=== PATIENT | female | born 1955 | race Caucasian/White ===

== ENCOUNTER 2018-04-18 12:20 | Inpatient (IN) | payer OTHER ==
[~2018-04-18] VITALS: Ht 170.2 cm; Wt 44.9 kg
[2018-04-18 13:13] LABS: BASOPHILS % (AUTO) 0.2 % (0.0-5.0); EOSINOPHILS % (AUTO) 0.4 % (0.0-8.0); HEMATOCRIT 44.2 % (36-48); LYMPHOCYTES % (AUTO) 5.1 % (21.0-51.0); MEAN CORPUSCULAR HEMOGLOBIN 27.4 pg (27.0-33.0); MEAN CORPUSCULAR HGB CONC 31.9 g/dL (32.0-36.0); MEAN CORPUSCULAR VOLUME 85.9 fL (79-99); MONOCYTES % (AUTO) 5.3 % (3.0-13.0); PLATELET COUNT (AUTO) 376 K/uL (130-400); RED BLOOD CELL COUNT(AUTO) 5.14 MIL/uL (4.00-5.50); RED CELL DISTRIBUTION WIDTH 15.1 % (11.0-15.5); WHITE BLOOD COUNT (AUTO) 9.9 K/uL (4.8-10.8)
[2018-04-18 13:23] LABS: CREATININE 0.4 mg/dL (0.5-1.5); POTASSIUM 3.9 mmol/L (3.5-5.1)
[2018-04-18 13:28] LABS: ALBUMIN 2.4 g/dL (3.5-5.0); BILIRUBIN,TOTAL 0.5 mg/dL (0.2-1.0); MAGNESIUM 2.2 mg/dL (1.80-2.40); TOTAL PROTEIN, SERUM 6.4 g/dL (6.0-8.3)
[2018-04-18] MEDS ORDERED: SODIUM CHLORIDE 0.9% 1000ML 1,000 ML IV ONE ×2 (13:38→17:14)
[2018-04-18] MEDS ORDERED: CEFTRIAXONE SODIUM 1 GM ONE (14:34)
[2018-04-18] MEDS ORDERED: AZITHROMYCIN 500MG+NS 250ML 250 ML IV ONE (14:36)
[2018-04-18] MEDS ORDERED: IOHEXOL-350 50ML VIAL IV ONE (15:06)
[2018-04-18] MEDS ORDERED: ACETAMINOPHEN 325 MG TAB PO PRN (17:15)
[2018-04-18] MEDS ORDERED: MORPHINE SULFATE 2 MG/ML 1ML SYG IV PRN ×2 (17:15→21:15)
[2018-04-18] MEDS ORDERED: ONDANSETRON HCL 4 MG/2 ML VIAL IV PRN (17:15)
[2018-04-18 18:52] VITALS: BP 92/59
[2018-04-18] MEDS ORDERED: IPRATROPIUM/ALBUTEROL SULFATE 3 ML SOLUTION IH ONE (19:44)
[2018-04-18] MEDS: SODIUM CHLORIDE 0.9% 1000ML 1,000 ML IV SCH (19:45)
[2018-04-18] MEDS ORDERED: FUROSEMIDE 10 MG/ML 4ML VIAL IVP SCH (21:00)
[2018-04-18 23:00] VITALS: BP 106/61
[2018-04-18] MEDS: DOXYCYCLINE 100MG+NS 250ML 250 ML IV SCH (23:02)
[2018-04-18] MEDS: FAMOTIDINE/PF 20 MG/2 ML VIAL IV SCH (23:02)
[2018-04-18] MEDS: HEPARIN SODIUM 5000UNIT/ML 1ML VIAL SQ SCH (23:04)
[2018-04-18] MEDS: ZOSYN 3.375GM+NS 50ML 50 ML IV SCH (23:06)
[2018-04-18] MEDS ORDERED: SODIUM CHLORIDE 0.9% 50 ML IV ONE (23:12)
[2018-04-18] MEDS: IPRATROPIUM/ALBUTEROL SULFATE 3 ML SOLUTION IH SCH (23:23)
[2018-04-19 03:53] VITALS: BP 95/52
[2018-04-19] MEDS ORDERED: GUAIFENESIN-DM 200/20 MG 10 ML PO PRN (04:45)
[2018-04-19] MEDS ORDERED: GUAIFENESIN-DM 200/20 MG 10 ML ONE (05:30)
[2018-04-19] MEDS: IPRATROPIUM/ALBUTEROL SULFATE 3 ML SOLUTION IH SCH ×4 (05:51→23:12)
[2018-04-19 05:54] LABS: HEMATOCRIT 38.8 % (36-48); MEAN CORPUSCULAR HEMOGLOBIN 28.5 pg (27.0-33.0); MEAN CORPUSCULAR HGB CONC 32.9 g/dL (32.0-36.0); MEAN CORPUSCULAR VOLUME 86.6 fL (79-99); PLATELET COUNT (AUTO) 364 K/uL (130-400); RED BLOOD CELL COUNT(AUTO) 4.48 MIL/uL (4.00-5.50); RED CELL DISTRIBUTION WIDTH 15.3 % (11.0-15.5); WHITE BLOOD COUNT (AUTO) 7.1 K/uL (4.8-10.8)
[2018-04-19 06:06] LABS: INR 0.89 (0.85-1.15); PARTIAL THROMBOPLASTIN TIME 27.6 SEC (26.3-35.5); PROTHROMBIN TIME 9.4 SEC (9.6-11.6)
[2018-04-19 06:16] LABS: ALBUMIN 2.1 g/dL (3.5-5.0); BILIRUBIN,TOTAL 0.5 mg/dL (0.2-1.0); CREATININE 0.3 mg/dL (0.5-1.5); MAGNESIUM 1.9 mg/dL (1.80-2.40); PHOSPHORUS 2.3 mg/dL (2.5-4.9); POTASSIUM 3.1 mmol/L (3.5-5.1); THYROID STIMULATING HORMONE 3.16 uIU/mL (0.36-3.74); TOTAL PROTEIN, SERUM 5.6 g/dL (6.0-8.3)
[2018-04-19] MEDS: ZOSYN 3.375GM+NS 50ML 50 ML IV SCH ×3 (06:43→23:14)
[2018-04-19 07:00] VITALS: BP 94/56
[2018-04-19] MEDS ORDERED: POTASSIUM CHLORIDE 10% ELIXIR 20 MEQ/15 ML UDCUP PO PRN (08:00)
[2018-04-19] MEDS ORDERED: POTASSIUM CHLORIDE 20 MEQ ERTAB PO PRN (08:00)
[2018-04-19] MEDS ORDERED: LIDOCAINE HCL MPF 1% 5ML VIAL ONE (08:37)
[2018-04-19] MEDS: HEPARIN SODIUM 5000UNIT/ML 1ML VIAL SQ SCH ×2 (09:00→22:44)
[2018-04-19] MEDS: DOXYCYCLINE 100MG+NS 250ML 250 ML IV SCH ×2 (10:25→22:45)
[2018-04-19] MEDS: FAMOTIDINE/PF 20 MG/2 ML VIAL IV SCH ×2 (10:25→22:45)
[2018-04-19 11:13] LABS: APPEARANCE BODY FLUID CLEAR (CLEAR); COLOR,BODY FLUID YELLOW (LT YELLOW); SPECIMENTYPE,BODY FLUID PLEURAL; TOTAL VOLUME,BODY FLUID 800 mL
[2018-04-19 11:14] LABS: BODY FLUID RBC 2350 /cu. mm.; BODY FLUID WBC 457 /cu. mm.
[2018-04-19 11:26] LABS: BF LYMPHOCYTE 32 %; BF MESOTHELIAL 6 %; BF MONOCYTE 4 %
[2018-04-19 13:35] VITALS: BP 93/51
[2018-04-19] MEDS: SODIUM CHLORIDE 0.9% 1000ML 1,000 ML IV SCH ×2 (15:45→19:09)
[2018-04-19 16:00] VITALS: BP 93/66
[2018-04-19 19:00] VITALS: BP 96/64
[2018-04-19] MEDS: LIDOCAINE HCL-MPF 1% 2ML VIAL IVP PRN (19:09)
[2018-04-19] MEDS: POTASSIUM CHLORIDE 20MEQ/100ML 100 ML IV PRN (19:09)
[2018-04-19] MEDS ORDERED: HALOPERIDOL LACTATE 5 MG/ML VIAL IM PRN (20:00)
[2018-04-19] MEDS ORDERED: HALOPERIDOL LACTATE 5 MG/ML VIAL ONE (21:03)
[2018-04-19 23:00] VITALS: BP 94/54
[2018-04-20] MEDS ORDERED: SODIUM CHLORIDE 3% FOR INHALATION 4 ML/AMP VIAL.NEB IH ONE ×3 (00:11→11:04)
[2018-04-20] MEDS: POTASSIUM CHLORIDE 20MEQ/100ML 100 ML IV PRN ×2 (02:29→11:30)
[2018-04-20] MEDS: MAGNESIUM 2GM PREMIX 50ML 50 ML IV SCH (02:30)
[2018-04-20] MEDS: LIDOCAINE HCL-MPF 1% 2ML VIAL IVP PRN ×2 (02:30→11:30)
[2018-04-20 03:30] VITALS: BP 92/60
[2018-04-20] MEDS ORDERED: SODIUM CHLORIDE 0.9% 50 ML IV ONE (04:57)
[2018-04-20 05:22] LABS: HEMATOCRIT 38.4 % (36-48); MEAN CORPUSCULAR HEMOGLOBIN 27.5 pg (27.0-33.0); MEAN CORPUSCULAR HGB CONC 31.8 g/dL (32.0-36.0); MEAN CORPUSCULAR VOLUME 86.4 fL (79-99); PLATELET COUNT (AUTO) 339 K/uL (130-400); RED BLOOD CELL COUNT(AUTO) 4.44 MIL/uL (4.00-5.50)
[2018-04-20 05:32] LABS: LYMPHOCYTES % (MANUAL) 7 % (22-44); MONOCYTES % (MANUAL) 1 % (2-9); SEGMENTED NEUTROPHILS % 92 % (40-70)
[2018-04-20 05:33] LABS: MAN.DIFF COMMENT-IMPRESSION MANUAL DIFFERENTIAL; PLATELET MORPHOLOGY COMMENT ADEQUATE
[2018-04-20 05:45] LABS: BILIRUBIN,TOTAL 0.5 mg/dL (0.2-1.0); CREATININE 0.4 mg/dL (0.5-1.5); MAGNESIUM 2.6 mg/dL (1.80-2.40); POTASSIUM 3.2 mmol/L (3.5-5.1); TOTAL PROTEIN, SERUM 5.2 g/dL (6.0-8.3)
[2018-04-20] MEDS: IPRATROPIUM/ALBUTEROL SULFATE 3 ML SOLUTION IH SCH ×4 (05:52→23:34)
[2018-04-20] MEDS: ZOSYN 3.375GM+NS 50ML 50 ML IV SCH ×3 (06:41→22:42)
[2018-04-20 07:00] VITALS: BP 90/54
[2018-04-20] MEDS: FAMOTIDINE/PF 20 MG/2 ML VIAL IV SCH ×2 (10:37→22:42)
[2018-04-20] MEDS: DOXYCYCLINE 100MG+NS 250ML 250 ML IV SCH ×2 (10:37→22:41)
[2018-04-20] MEDS: HEPARIN SODIUM 5000UNIT/ML 1ML VIAL SQ SCH ×2 (10:39→22:47)
[2018-04-20] MEDS: DEXTROSE 5%-LACTATED RINGERS 1,000 ML IV SCH (10:58)
[2018-04-20 11:00] VITALS: BP 106/60
[2018-04-20 15:00] VITALS: BP 100/62
[2018-04-20 20:00] VITALS: BP 111/71
[2018-04-20] MEDS: DRONABINOL 2.5 MG CAP PO SCH (22:41)
[2018-04-21] VITALS (16 sets, daily range): BP systolic 83–145; BP diastolic 51–93
[2018-04-21] MEDS ORDERED: IPRATROPIUM/ALBUTEROL SULFATE 3 ML SOLUTION IH PRN
[2018-04-21 00:21] LABS: ABG BASE EXCESS -2.7 mmol/L (-2.0-3.0); ABG HCO3 25.4 mmol/L (21.0-28.0); ABG OXYGEN SATURATION 95.6 % (95.0-99.0); ABG PCO2 58 mmHg (32-45)
[2018-04-21] MEDS: IPRATROPIUM/ALBUTEROL SULFATE 3 ML SOLUTION IH SCH ×7 (01:50→23:04)
[2018-04-21] MEDS: DEXTROSE 5%-LACTATED RINGERS 1,000 ML IV SCH ×2 (03:41→13:25)
[2018-04-21] MEDS: ZOSYN 3.375GM+NS 50ML 50 ML IV SCH ×2 (06:43→16:31)
[2018-04-21] MEDS ORDERED: NOREPINEPHRINE 4MG/NS 250ML 250 ML IV SCH (08:15)
[2018-04-21] MEDS: DRONABINOL 2.5 MG CAP PO SCH ×2 (08:28→21:00)
[2018-04-21] MEDS: FOLIC ACID/VITAMIN B COMP W-C 1 MG CAPSULE PO SCH (08:28)
[2018-04-21] MEDS: METHYLPREDNISOLONE SOD SUCC 40MG/ML 1ML IVP SCH ×2 (08:44→16:31)
[2018-04-21] MEDS: DOXYCYCLINE 100MG+NS 250ML 250 ML IV SCH ×2 (08:44→21:41)
[2018-04-21] MEDS: FAMOTIDINE/PF 20 MG/2 ML VIAL IV SCH ×2 (08:44→21:41)
[2018-04-21] MEDS: THIAMINE HCL 100 MG/ML 2ML VIAL IVP SCH (08:44)
[2018-04-21 08:46] LABS: ABG BASE EXCESS 3.6 mmol/L (-2.0-3.0); ABG HCO3 27.9 mmol/L (21.0-28.0); ABG OXYGEN SATURATION 98.1 % (95.0-99.0); ABG PCO2 41 mmHg (32-45)
[2018-04-21] MEDS: HEPARIN SODIUM 5000UNIT/ML 1ML VIAL SQ SCH ×2 (08:59→21:45)
[2018-04-21 09:16] LABS: BASOPHILS % (AUTO) 0.1 % (0.0-5.0); EOSINOPHILS % (AUTO) 0.2 % (0.0-8.0); HEMATOCRIT 37.5 % (36-48); LYMPHOCYTES % (AUTO) 6.7 % (21.0-51.0); MEAN CORPUSCULAR HEMOGLOBIN 28.5 pg (27.0-33.0); MEAN CORPUSCULAR VOLUME 86.2 fL (79-99); MONOCYTES % (AUTO) 5.6 % (3.0-13.0); NEUTROPHILS % (AUTO) 87.4 % (40.0-77.0); PLATELET COUNT (AUTO) 358 K/uL (130-400); RED BLOOD CELL COUNT(AUTO) 4.34 MIL/uL (4.00-5.50); RED CELL DISTRIBUTION WIDTH 15.4 % (11.0-15.5)
[2018-04-21 09:27] LABS: CREATININE 0.4 mg/dL (0.5-1.5)
[2018-04-21 09:36] LABS: POTASSIUM 2.5 mmol/L (3.5-5.1)
[2018-04-21] MEDS: POTASSIUM CHLORIDE 20MEQ/100ML 100 ML IV PRN ×2 (10:09→11:58)
[2018-04-22] VITALS (24 sets, daily range): BP systolic 87–117; BP diastolic 52–70
[2018-04-22] MEDS: ZOSYN 3.375GM+NS 50ML 50 ML IV SCH ×4 (00:11→22:25)
[2018-04-22] MEDS: METHYLPREDNISOLONE SOD SUCC 40MG/ML 1ML IVP SCH ×4 (00:11→22:30)
[2018-04-22] MEDS ORDERED: DEXTROSE 5%-LACTATED RINGERS 1,000 ML IV ONE (00:12)
[2018-04-22] MEDS: DEXTROSE 5%-LACTATED RINGERS 1,000 ML IV SCH ×2 (00:23→15:36)
[2018-04-22] MEDS: IPRATROPIUM/ALBUTEROL SULFATE 3 ML SOLUTION IH SCH ×6 (02:03→22:03)
[2018-04-22] MEDS: FAMOTIDINE/PF 20 MG/2 ML VIAL IV SCH ×2 (08:09→20:56)
[2018-04-22] MEDS: THIAMINE HCL 100 MG/ML 2ML VIAL IVP SCH (08:09)
[2018-04-22] MEDS: DOXYCYCLINE 100MG+NS 250ML 250 ML IV SCH ×2 (08:10→20:56)
[2018-04-22] MEDS: HEPARIN SODIUM 5000UNIT/ML 1ML VIAL SQ SCH ×2 (08:10→21:09)
[2018-04-22] MEDS: DRONABINOL 2.5 MG CAP PO SCH ×2 (08:10→20:45)
[2018-04-22] MEDS: FOLIC ACID/VITAMIN B COMP W-C 1 MG CAPSULE PO SCH (08:10)
[2018-04-22 08:28] LABS: MEAN CORPUSCULAR HEMOGLOBIN 28.1 pg (27.0-33.0); MEAN CORPUSCULAR HGB CONC 32.2 g/dL (32.0-36.0); MEAN CORPUSCULAR VOLUME 87.2 fL (79-99); NUCLEATED RED BLOOD CELLS 0.1 % (0.0-0.19); PLATELET COUNT (AUTO) 325 K/uL (130-400); RED BLOOD CELL COUNT(AUTO) 4.36 MIL/uL (4.00-5.50); RED CELL DISTRIBUTION WIDTH 15.8 % (11.0-15.5); WHITE BLOOD COUNT (AUTO) 8.5 K/uL (4.8-10.8)
[2018-04-22 08:35] LABS: CREATININE 0.4 mg/dL (0.5-1.5)
[2018-04-22 08:37] LABS: POTASSIUM 2.8 mmol/L (3.5-5.1)
[2018-04-22] MEDS: POTASSIUM CHLORIDE 20MEQ/100ML 100 ML IV PRN ×2 (11:15→13:48)
[2018-04-22] MEDS: MAGNESIUM 2GM PREMIX 50ML 50 ML IV SCH (11:15)
[2018-04-22 17:40] LABS: MAGNESIUM 2.4 mg/dL (1.80-2.40); POTASSIUM 3.4 mmol/L (3.5-5.1)
[2018-04-23] VITALS (25 sets, daily range): BP systolic 90–129; BP diastolic 44–94
[2018-04-23] MEDS: IPRATROPIUM/ALBUTEROL SULFATE 3 ML SOLUTION IH SCH ×6 (01:34→21:47)
[2018-04-23] MEDS: DEXTROSE 5%-LACTATED RINGERS 1,000 ML IV SCH ×2 (05:25→15:03)
[2018-04-23] MEDS: ZOSYN 3.375GM+NS 50ML 50 ML IV SCH ×3 (06:12→23:06)
[2018-04-23 08:07] LABS: HEMATOCRIT 35.4 % (36-48); MEAN CORPUSCULAR HEMOGLOBIN 28.3 pg (27.0-33.0); MEAN CORPUSCULAR HGB CONC 32.6 g/dL (32.0-36.0); MEAN CORPUSCULAR VOLUME 86.9 fL (79-99); PLATELET COUNT (AUTO) 369 K/uL (130-400); RED BLOOD CELL COUNT(AUTO) 4.08 MIL/uL (4.00-5.50); RED CELL DISTRIBUTION WIDTH 15.7 % (11.0-15.5); WHITE BLOOD COUNT (AUTO) 8.6 K/uL (4.8-10.8)
[2018-04-23 08:13] LABS: CREATININE 0.3 mg/dL (0.5-1.5); MAGNESIUM 2.1 mg/dL (1.80-2.40)
[2018-04-23 08:32] LABS: POTASSIUM 2.6 mmol/L (3.5-5.1)
[2018-04-23] MEDS: HEPARIN SODIUM 5000UNIT/ML 1ML VIAL SQ SCH ×2 (08:37→22:04)
[2018-04-23] MEDS: METHYLPREDNISOLONE SOD SUCC 40MG/ML 1ML IVP SCH ×3 (08:37→23:42)
[2018-04-23] MEDS: FAMOTIDINE/PF 20 MG/2 ML VIAL IV SCH ×2 (08:37→21:28)
[2018-04-23] MEDS: THIAMINE HCL 100 MG/ML 2ML VIAL IVP SCH (08:37)
[2018-04-23] MEDS: DOXYCYCLINE 100MG+NS 250ML 250 ML IV SCH ×2 (08:37→21:28)
[2018-04-23] MEDS: DRONABINOL 2.5 MG CAP PO SCH (08:38)
[2018-04-23] MEDS: POTASSIUM CHLORIDE 20MEQ/100ML 100 ML IV PRN ×2 (08:38→11:37)
[2018-04-23] MEDS: FOLIC ACID/VITAMIN B COMP W-C 1 MG CAPSULE PO SCH (08:38)
[2018-04-23] MEDS: POTASSIUM CHLORIDE 40 MEQ in DEXTROSE 5%-WATER 1,000 ML IV SCH (11:37)
[2018-04-23 16:15] LABS: CREATININE 0.2 mg/dL (0.5-1.5); POTASSIUM 3.6 mmol/L (3.5-5.1)
[2018-04-24] VITALS (18 sets, daily range): BP systolic 114–143; BP diastolic 48–94
[2018-04-24] MEDS: IPRATROPIUM/ALBUTEROL SULFATE 3 ML SOLUTION IH SCH ×6 (01:35→22:05)
[2018-04-24] MEDS: POTASSIUM CHLORIDE 40 MEQ in DEXTROSE 5%-WATER 1,000 ML IV SCH ×2 (02:15→19:15)
[2018-04-24 03:44] LABS: HEMATOCRIT 38.7 % (36-48); MEAN CORPUSCULAR HEMOGLOBIN 27.7 pg (27.0-33.0); MEAN CORPUSCULAR HGB CONC 31.8 g/dL (32.0-36.0); MEAN CORPUSCULAR VOLUME 87.1 fL (79-99); PLATELET COUNT (AUTO) 337 K/uL (130-400); RED BLOOD CELL COUNT(AUTO) 4.44 MIL/uL (4.00-5.50); RED CELL DISTRIBUTION WIDTH 15.8 % (11.0-15.5)
[2018-04-24 03:55] LABS: CREATININE 0.3 mg/dL (0.5-1.5); MAGNESIUM 1.8 mg/dL (1.80-2.40); POTASSIUM 3.8 mmol/L (3.5-5.1)
[2018-04-24 05:26] LABS: ABG BASE EXCESS 7.5 mmol/L (-2.0-3.0); ABG HCO3 33.1 mmol/L (21.0-28.0); ABG OXYGEN SATURATION 97.8 % (95.0-99.0); ABG PCO2 50 mmHg (32-45)
[2018-04-24] MEDS: ZOSYN 3.375GM+NS 50ML 50 ML IV SCH ×2 (06:41→15:18)
[2018-04-24] MEDS: DEXTROSE 5%-LACTATED RINGERS 1,000 ML IV SCH ×2 (08:05→19:45)
[2018-04-24] MEDS ORDERED: MEGESTROL 400 MG/10 ML UDCUP PO SCH (09:00)
[2018-04-24] MEDS: FOLIC ACID/VITAMIN B COMP W-C 1 MG CAPSULE PO SCH (09:00)
[2018-04-24] MEDS: FAMOTIDINE/PF 20 MG/2 ML VIAL IV SCH ×2 (09:03→20:40)
[2018-04-24] MEDS: METHYLPREDNISOLONE SOD SUCC 40MG/ML 1ML IVP SCH (09:03)
[2018-04-24] MEDS: THIAMINE HCL 100 MG/ML 2ML VIAL IVP SCH (09:03)
[2018-04-24] MEDS: DOXYCYCLINE 100MG+NS 250ML 250 ML IV SCH (09:03)
[2018-04-24] MEDS: HEPARIN SODIUM 5000UNIT/ML 1ML VIAL SQ SCH (09:07)
[2018-04-24 15:17] LABS: INR 0.95 (0.85-1.15); PARTIAL THROMBOPLASTIN TIME 24.3 SEC (26.3-35.5)
[2018-04-24] MEDS ORDERED: SODIUM CHLORIDE 0.9% 100 ML IV ONE (15:19)
[2018-04-24] MEDS ORDERED: MORPHINE SULFATE 2 MG/ML 1ML SYG IVP PRN (17:00)
[2018-04-24] MEDS ORDERED: MORPHINE SULFATE 2 MG/ML 1ML SYG IV PRN (17:00)
[2018-04-24] MEDS: MORPHINE SULFATE 2 MG/ML 1ML SYG IVP PRN (20:41)
[2018-04-25] MEDS: IPRATROPIUM/ALBUTEROL SULFATE 3 ML SOLUTION IH SCH ×5 (01:35→21:44)
[2018-04-25 04:35] VITALS: BP 113/60
[2018-04-25 07:00] VITALS: BP 116/66
[2018-04-25] MEDS: FAMOTIDINE/PF 20 MG/2 ML VIAL IV SCH ×2 (08:57→21:49)
[2018-04-25] MEDS: DEXTROSE 5%-LACTATED RINGERS 1,000 ML IV SCH (10:45)
[2018-04-25 11:00] VITALS: BP 113/55
[2018-04-25] MEDS: MORPHINE SULFATE 2 MG/ML 1ML SYG IVP PRN ×3 (14:00→23:46)
[2018-04-25 16:00] VITALS: BP 122/74
[2018-04-25 19:30] VITALS: BP 127/75
[2018-04-26] MEDS: DEXTROSE 5%-LACTATED RINGERS 1,000 ML IV SCH ×2 (00:05→13:25)
[2018-04-26] MEDS: IPRATROPIUM/ALBUTEROL SULFATE 3 ML SOLUTION IH SCH ×4 (01:37→14:03)
[2018-04-26] MEDS: MORPHINE SULFATE 2 MG/ML 1ML SYG IVP PRN ×2 (04:04→12:34)
[2018-04-26] MEDS: POTASSIUM CHLORIDE 40 MEQ in DEXTROSE 5%-WATER 1,000 ML IV SCH (05:15)
[2018-04-26] MEDS: FAMOTIDINE/PF 20 MG/2 ML VIAL IV SCH (08:12)
== END 2018-04-26 17:20 | disposition hospice, home (50) | DRG 180 ==
LOC: EDH 12:20 → EDHIP 12:21 → 3AH 17:57 → 2CH 04-21 09:27 → 2BH 04-24 17:34 → 3DH 04-25 00:44
PROVIDERS: ADMIT Hospitalist; ATTEND Hospitalist
PROC: 0W9B3ZX Drainage of Left Pleural Cavity, Percutaneous Approach, Diagnostic (ICD-10-PCS; principal; 2018-04-19)
PROC: 5A09357 Assistance with Respiratory Ventilation, Less than 24 Consecutive Hours, Continuous Positive Airway Pressure (ICD-10-PCS; 2018-04-21)
PROC: 5A09457 Assistance with Respiratory Ventilation, 24-96 Consecutive Hours, Continuous Positive Airway Pressure (ICD-10-PCS; 2018-04-22)
PROC: 5A09357 Assistance with Respiratory Ventilation, Less than 24 Consecutive Hours, Continuous Positive Airway Pressure (ICD-10-PCS; 2018-04-24)
DX: C34.92 Malignant neoplasm of unspecified part of left bronchus or lung (principal); E43 Unspecified severe protein-calorie malnutrition; J18.9 Pneumonia, unspecified organism; J96.21 Acute and chronic respiratory failure with hypoxia; J96.22 Acute and chronic respiratory failure with hypercapnia; J93.9 Pneumothorax, unspecified; E87.1 Hypo-osmolality and hyponatremia; F05 Delirium due to known physiological condition; G93.40 Encephalopathy, unspecified; J91.0 Malignant pleural effusion; J98.11 Atelectasis; R64 Cachexia; Z68.1 Body mass index [BMI] 19.9 or less, adult; J44.0 Chronic obstructive pulmonary disease with (acute) lower respiratory infection; L98.429 Non-pressure chronic ulcer of back with unspecified severity; R53.81 Other malaise; I95.9 Hypotension, unspecified; E86.0 Dehydration; E83.51 Hypocalcemia; E83.52 Hypercalcemia; E87.6 Hypokalemia; I25.10 Atherosclerotic heart disease of native coronary artery without angina pectoris; R62.7 Adult failure to thrive; Z51.5 Encounter for palliative care; Z66 Do not resuscitate; Z78.9 Other specified health status; Z87.891 Personal history of nicotine dependence; Z74.01 Bed confinement status; Z91.19 Patient's noncompliance with other medical treatment and regimen; Z79.899 Other long term (current) drug therapy; Z28.21 Immunization not carried out because of patient refusal
CPT/HCPCS: 32555; 36415; 36600; 71045; 71260; 80048; 80053; 82435; 82803; 82945; 82947; 83605; 83615; 83690; 83735; 83986; 84100; 84132; 84157; 84295; 84443; 84484; 85018; 85025; 85027; 85610; 85730; 86480; 86701; 87040; 87071; 87103; 87116; 87205; 87206; 87390; 88108; 88305; 89051; 92507; 92610; 93005; 94640; 94660; 94664; 99291; A4344; J0456; J0696; J1630; J1644; J2543; J2920; J3411; J3475; J3480; J3490; J7030; J7070; Q0167; Q9967